=== PATIENT | female | born 1960 | race Caucasian/White ===

== ENCOUNTER 2018-10-05 06:04 | Day surgery (SDC) | payer OTHER, BC ==
[2018-10-05] MEDS ORDERED: CEFAZOLIN 2 GM/50 ML (PMX) 50 ML IVPB (07:00)
[2018-10-05] MEDS ORDERED: SOD CHLORIDE 0.9% 1,000 ML IV (07:00)
[2018-10-05] MEDS ORDERED: ETOMIDATE 20 MG INJ (08:19)
[2018-10-05] MEDS ORDERED: LIDOCAINE 2% (SDV) 5 ML INJ (08:19)
[2018-10-05] MEDS ORDERED: ROCURONIUM 50 MG INJ (08:19)
[2018-10-05] MEDS ORDERED: PROPOFOL 20 ML (08:19)
[2018-10-05] MEDS ORDERED: FENTAnyl 50 MCG/ML VIAL ×2 (08:19)
[2018-10-05] MEDS ORDERED: MIDAZOLAM 1 MG/ML 2 ML INJ (08:19)
[2018-10-05] MEDS ORDERED: ESMOLOL 10 ML (08:27)
[2018-10-05] MEDS ORDERED: ROPIVACAINE 0.5 % 30 ML VIAL (08:35)
[2018-10-05] MEDS ORDERED: CEFAZOLIN 1 GM INJ (08:58)
[2018-10-05] MEDS ORDERED: hydrALAzine 20 MG INJ (09:07)
[2018-10-05] MEDS ORDERED: SUGAMMADEX SODIUM 200 MG/2 ML VIAL IV (09:15)
[2018-10-05] MEDS ORDERED: LABETALOL HCL 20MG INJ (09:20)
[2018-10-05] MEDS ORDERED: ONDANSETRON 4 MG INJ (09:27)
[2018-10-05] MEDS ORDERED: HYDROmorphONE 1 MG/5 ML IV SYRINGE IV ×3 (09:55→10:00)
[2018-10-05] MEDS ORDERED: METOCLOPRAMIDE 10 MG INJ IV (10:00)
[2018-10-05] MEDS ORDERED: ONDANSETRON 4 MG INJ IV (10:00)
[2018-10-05] MEDS: HYDROmorphONE 1 MG/5 ML IV SYRINGE IV ×3 (10:13→10:29)
[2018-10-05] MEDS ORDERED: HYDROCODONE/APAP (5/325) TAB (10:32)
[2018-10-05] MEDS: HYDROCODONE/APAP (5/325) TAB PO (10:33)
== END 2018-10-05 13:50 | disposition home or self-care (01) ==
LOC: SDS 06:04
DX: K80.10 Calculus of gallbladder with chronic cholecystitis without obstruction (principal); I10 Essential (primary) hypertension; E78.5 Hyperlipidemia, unspecified; I73.9 Peripheral vascular disease, unspecified
CPT/HCPCS: 47562; 88304